=== PATIENT | male | born 1970 | race American Indian/Alaskan Native ===

== ENCOUNTER 2020-11-19 02:05 | Emergency (ER) | payer OTHER ==
[2020-11-19] MEDS ORDERED: BACITRACIN ZINC OINT 28.4 GM TP ONE (06:45)
[2020-11-19] MEDS ORDERED: TETANUS,DIPH,PERTUSS(ACELL) VACCINE 0.5 ML SYRINGE IM ONE (06:45)
[2020-11-19 07:45] VITALS: BP 139/77
== END 2020-11-19 07:48 | disposition home or self-care (01) ==
LOC: ED 02:05
DX: T24.211A Burn of second degree of right thigh, initial encounter (principal); Z88.6 Allergy status to analgesic agent; Z79.899 Other long term (current) drug therapy; X08.8XXA Exposure to other specified smoke, fire and flames, initial encounter; Y93.89 Activity, other specified; Y92.89 Other specified places as the place of occurrence of the external cause; Y99.8 Other external cause status
CPT/HCPCS: 90471; 90715; 99282